=== PATIENT | female | born 1990 | race Caucasian/White ===

== ENCOUNTER 2023-02-25 02:17 | Emergency (ER) | payer OTHER ==
[~2023-02-25] VITALS: Ht 160 cm; Wt 120.0 kg
[2023-02-25] MEDS ORDERED: METHYLPREDNISOLONE SOD SUCC 125MG/2ML (ACT-O-VIAL) IV STA (02:52)
[2023-02-25] MEDS ORDERED: IPRATROPIUM BROMIDE (0.02%) 0.5MG/2.5ML NEB HHN STA (02:52)
[2023-02-25] MEDS ORDERED: MAGNESIUM 2 G PREMIX 50 ML IV ONE (03:00)
[2023-02-25] MEDS: ALBUTEROL (0.083%) 2.5MG/3ML NEB HHN SCH ×3 (03:22→04:21)
[2023-02-25 03:26] LABS: BASOPHILS % 0.7 % (0.0-2.0); EOSINOPHILS % 5.7 % (0.0-5.0); HEMATOCRIT. 39.1 % (36.0-48.0); HEMOGLOBIN. 13.2 g/dL (12.0-16.0); MEAN CORPUSCULAR HEMOGLOBIN 29.4 pg (28.0-32.0); MEAN CORPUSCULAR HGB CONC 33.7 g/dL (31.0-37.0); MEAN CORPUSCULAR VOLUME 87.2 fL (81.0-99.0); MEAN PLATELET VOLUME 8.7 fl (7.4-10.4); MONOCYTES % 4.5 % (2.0-8.0); NEUTROPHILS % 74.1 % (40.0-76.0); PLATELET 242 x1000/uL (130-400); RED BLOOD CELL COUNT 4.48 mill/uL (4.2-5.4); RED CELL DISTRIBUTION WIDTH 14.4 % (11.6-14.6); WHITE BLOOD COUNT 11.7 x1000/uL (4.5-11.0)
[2023-02-25 03:31] VITALS: PULSE 117; RESP 24; O2SAT 96
[2023-02-25 03:35] LABS: HCG SCREEN NEGATIVE
[2023-02-25 03:40] LABS: ALANINE AMINOTRANSFERASE 22 IU/L (10-49); ALBUMIN 4.1 g/dL (3.2-4.8); ASPARTATE AMINOTRANSFERASE 22 IU/L (<34); BILIRUBIN TOTAL 0.3 mg/dL (0.1-1.0); CARBON DIOXIDE 28 mEq/L (21-32); CHLORIDE 102 mEq/L (98-107); CREATININE 0.6 mg/dL (0.6-1.0); GLUCOSE 140 mg/dL (70-105); POTASSIUM 3.9 mEq/L (3.5-5.1); PROTEIN TOTAL 7.1 g/dL (6.0-8.3); SODIUM 137 mEq/L (136-145); TROPONIN I HIGH SENSITIVITY 5 ng/L (3.0-34); UREA NITROGEN BLOOD 8 mg/dL (9-23)
[2023-02-25 03:42] VITALS: PULSE 118; RESP 20; O2SAT 99
[2023-02-25 04:22] VITALS: PULSE 122; RESP 20; O2SAT 99
[2023-02-25] MEDS ORDERED: ALBU6.7H15 INH (05:12)
[2023-02-25] MEDS ORDERED: P20 MT (05:12)
[2023-02-25 07:14] VITALS: BP 145/95; PULSE 105; RESP 20; TEMP 98.2
== END 2023-02-25 07:16 | disposition home or self-care (01) ==
LOC: ER 02:17
DX: J40 Bronchitis, not specified as acute or chronic (principal); Z98.890 Other specified postprocedural states; Z20.822 Contact with and (suspected) exposure to COVID-19
CPT/HCPCS: 80053; 81025; 84703; 83880; 83605; 85025; 85379; 84484; 87804 ×2; 36415; 71045; 96365; 96375; 99285; 87426; J3475; J2930; Z7610 ×4